=== PATIENT | female | born 1980 | race Caucasian/White ===

== ENCOUNTER 2016-12-27 22:01 | Emergency (ER) | payer SELFPAY ==
[~2016-12-27] VITALS: Ht 162.6 cm; Wt 45.4 kg
[2016-12-27] MEDS ORDERED: NS IV 500 ML 500 ML IV ONE (22:43)
[2016-12-27] MEDS ORDERED: ONDANSETRON 4 MG/2 ML (SDV) Z0FRAN IVP ONE (22:45)
[2016-12-27] MEDS ORDERED: KETOROLAC 30 MG/ML VIAL IVP ONE (22:45)
[2016-12-27] MEDS ORDERED: ONDANSETRON 4 MG/2 ML (SDV) Z0FRAN IVP PRN (22:45)
--- NOTE | 2016-12-27 22:52 | ED GI ---
General Chief Complaint: Abdominal/GI Problems Stated Complaint: N/V/D/ABD PAIN Nursing Triage Note: c/o abdomen pain starting today Sepsis Screen: No Definite Risk Source of Information: Patient, Family (plan sister) Exam Limitations: No Limitations History of Present Illness Time Seen By Provider: 22:42 Initial Comments Patient presents to ER by EMS with a chief complaint of abdominal pain nausea and vomiting started this afternoon after she ate some catfish from [employer] [facility]. This is approximately 1400 hrs. She says for the past 2-3 days she's been having fever Tmax of 103 Fahrenheit by her own thermometer since Friday when she noticed she had a rash all over her body that were small 1 cm flat diameter erythematous lesions with pustules. She says she saw the walk-in clinic and they gave her a shot of steroids for the itching because they thought it was some kind of a mites and this improved both her rash and itching. However she began having fever shortly after the rash started. She states the rash started after she had slept on the floor overnight. No one else in the family has any rash similar to this nor symptoms similar to this. She has not been traveling recently nor she drank from unsafe water or food sources. She is a history of endometriosis for which she's had part of her small intestine removed as well as her gallbladder and hysterectomy. She's also had her thyroid at least partially removed and is on Synthroid. She was also treated up until 2 weeks ago for H. pylori gastritis with antibiotics and PPIs. She has not followed up with her PCP since that medication has completed. Thinks that she is also having some pressure on her chest right now as well as mild shortness of breath he gets worse when she is nauseated. When she threw up today she says there is no blood and only her food. Allergies and Home Medications Allergies Coded Allergies: latex (Verified Allergy, Unknown, 12/27/16) Review of Systems Constitutional: chills, diaphoresis, fever, malaise EENTM: No Blurred Vision, No Double Vision, No Eye Pain Respiratory: Denies Cough, SOA With Exertion Cardiovascular: Chest Pain (pressure) Gastrointestinal: Denies Abdomen Distended, Denies Abdominal Pain, Denies Blood Streaked Stools, Denies Constipated, Denies Diarrhea, Nausea, Vomiting Genitourinary: Denies Burning, Denies Discharge, Denies Drainage Musculoskeletal: No back pain, No joint pain Skin: see HPI, pruritus, rash Psychiatric/Neurological: Denies Headache, Denies Numbness, Denies Paresthesia , Denies Seizure Hematologic/Lymphatic: Denies Blood Clots, Denies Easy Bleeding, Denies Easy Bruising Past [id number]-[id number] Hx Patient Social History Alcohol Use: Denies Use Recreational Drug Use: No Recent Foreign Travel: No Contact w/Someone Who Travel: No Recent Infectious Disease Expo: No Surgeries History of Surgeries: Yes Surgeries: Gallbladder, Hysterectomy, Thyroidectomy Respiratory History of Respiratory Disorde: No Cardiovascular History of Cardiac Disorders: No Neurological History of Neurological Disord: No Reproductive System Female Reproductive Disorders: Endometriosis Genitourinary History of Genitourinary Disor: No Gastrointestinal History of Gastrointestinal Di: No Musculoskeletal History of Musculoskeletal Dis: No Endocrine History of Endocrine Disorders: No HEENT History of HEENT Disorders: No Cancer History of Cancer: No Psychosocial History of Psychiatric Problem: No Integumentary History of Skin or Integumenta: No Blood Transfusions History of Blood Disorders: No Physical Exam Vital Signs VS - Last 72 Hours, by Label 12/27/16 12/27/16 22:04 23:11 Temp 98.7 Pulse 99 Resp 18 B/P (MAP) 111/74 Pulse Ox 98 98 O2 Delivery Room Air Capillary Refill : Less Than 3 Seconds General Appearance: WD/WN, moderate distress, thin HEENT: PERRL/EOMI, normal ENT inspection, pharynx normal Neck: non-tender, supple, normal inspection Respiratory: chest non-tender, lungs clear, normal breath sounds, no respiratory distress, no accessory muscle use, decreased breath sounds Cardiovascular: normal peripheral pulses, regular rate, rhythm, no edema Peripheral Pulses: 2+ Dorsalis Pedis (R), 2+ Left Dors-Pedis (L), 2+ Radial Pulses (R), 2+ Radial Pulses (L) Gastrointestinal: normal bowel sounds, non tender, soft, no organomegaly Extremities: normal range of motion, non-tender, normal inspection, no pedal edema, no calf tenderness, normal capillary refill Back: normal inspection, no CVA tenderness, no vertebral tenderness Neurologic/Psychiatric: alert, normal mood/affect, oriented x 3 Skin: warm/dry, rash (multiple truncal and leg and arm discoid erythematous 1 cm macular rashes with some of them having a punctate had a few of them have a pustular head in the center. She says they're mildly pruritic.) Lymphatic: no adenopathy Focused Exam Evaluation Lactate Level Laboratory Tests 12/27/16 22:55: Lactic Acid Level 1.16 Lactic Acid Level Laboratory Tests Test 12/27/16 22:55 Lactic Acid Level 1.16 MMOL/L (0.50-2.00) Progress/Results/Core Measures Results/Orders Lab Results Laboratory Tests Test 12/27/16 21:15 12/27/16 22:55 12/28/16 00:25 Range/Units Prothrombin Time 13.3 12.2-14.7 SEC INR Comment 1.0 0.8-1.4 Activated Partial Thromboplast Time 24 24-35 SEC White Blood Count 14.3 H 4.3-11.0 10^3/uL Red Blood Count 4.34 L 4.35-5.85 10^6/uL Hemoglobin 13.6 11.5-16.0 G/DL Hematocrit 39 35-52 % Mean Corpuscular Volume 91 80-99 FL Mean Corpuscular Hemoglobin 31 25-34 PG Mean Corpuscular Hemoglobin Concent 35 32-36 G/DL Red Cell Distribution Width 12.4 10.0-14.5 % Platelet Count 212 130-400 10^3/uL Mean Platelet Volume 9.8 7.4-10.4 FL Neutrophils (%) (Auto) 87 H 42-75 % Lymphocytes (%) (Auto) 6 L 12-44 % Monocytes (%) (Auto) 6 0-12 % Eosinophils (%) (Auto) 0 0-10 % Basophils (%) (Auto) 0 0-10 % Neutrophils # (Auto) 12.5 H 1.8-7.8 X 10^3 Lymphocytes # (Auto) 0.9 L 1.0-4.0 X 10^3 Monocytes # (Auto) 0.9 0.0-1.0 X 10^3 Eosinophils # (Auto) 0.0 0.0-0.3 10^3/uL Basophils # (Auto) 0.0 0.0-0.1 10^3/uL Neutrophils % (Manual) 84 % Lymphocytes % (Manual) 8 % Monocytes % (Manual) 3 % Eosinophils % (Manual) 0 % Basophils % (Manual) 0 % Band Neutrophils 0 % Reactive Lymphocytes 5 % Blood Morphology Comment NORMAL Sodium Level 138 135-145 MMOL/L Potassium Level 3.7 3.6-5.0 MMOL/L Chloride Level 108 H 98-107 MMOL/L Carbon Dioxide Level 21 21-32 MMOL/L Anion Gap 9 5-14 MMOL/L Blood Urea Nitrogen 11 7-18 MG/DL Creatinine 0.78 0.60-1.30 MG/DL Estimat Glomerular Filtration Rate > 60 BUN/Creatinine Ratio 14 Glucose Level 111 H 70-105 MG/DL Lactic Acid Level 1.16 0.50-2.00 MMOL/L Calcium Level 8.5 8.5-10.1 MG/DL Magnesium Level 2.1 1.8-2.4 MG/DL Total Bilirubin 0.4 0.1-1.0 MG/DL Aspartate Amino Transf (AST/SGOT) 15 5-34 U/L Alanine Aminotransferase (ALT/SGPT) 16 0-55 U/L Alkaline Phosphatase 65 40-136 U/L Total Protein 6.5 6.4-8.2 GM/DL Albumin 4.2 3.2-4.5 GM/DL Triglycerides Level 64 <150 MG/DL Lipase 22 8-78 U/L Urine Color YELLOW Urine Clarity CLEAR Urine pH 7 5-9 Urine Specific [place] 1.010 L 1.016-1.022 Urine Protein NEGATIVE NEGATIVE Urine Glucose (UA) NEGATIVE NEGATIVE Urine Ketones NEGATIVE NEGATIVE Urine Nitrite NEGATIVE NEGATIVE Urine Bilirubin NEGATIVE NEGATIVE Urine Urobilinogen NORMAL NORMAL MG/DL Urine Leukocyte Esterase NEGATIVE NEGATIVE Urine RBC (Auto) NEGATIVE NEGATIVE Urine RBC NONE /HPF Urine WBC NONE /HPF Urine Squamous Epithelial Cells 2-5 /HPF Urine Crystals NONE /LPF Urine Bacteria TRACE /HPF Urine Casts NONE /LPF Urine Mucus MODERATE H /LPF Urine Culture Indicated NO Urine Test NEGATIVE NEGATIVE Urine Opiates Screen NEGATIVE NEGATIVE Urine Oxycodone Screen NEGATIVE NEGATIVE Urine Methadone Screen NEGATIVE NEGATIVE Urine Propoxyphene Screen NEGATIVE NEGATIVE Urine Barbiturates Screen NEGATIVE NEGATIVE Ur Tricyclic Antidepressants Screen NEGATIVE NEGATIVE Urine Phencyclidine Screen NEGATIVE NEGATIVE Urine Amphetamines Screen NEGATIVE NEGATIVE Urine Methamphetamines Screen NEGATIVE NEGATIVE Urine Benzodiazepines Screen NEGATIVE NEGATIVE Urine Cocaine Screen NEGATIVE NEGATIVE Urine Cannabinoids Screen POSITIVE H NEGATIVE My Orders Orders - MEGAN ONOFRE Drug Screen Stat (Urine) (12/27/16 22:43) Hcg,Qualitative Urine (12/27/16 22:43) Magnesium (12/27/16 22:43) Ua Culture If Indicated (12/27/16 22:43) Cbc With Automated Diff (12/27/16 22:43) Comprehensive Metabolic Panel (12/27/16 22:43) Lactic Acid Analyzer (12/27/16 22:43) Blood Culture (12/27/16 22:43) Sputum Culture (12/27/16 22:43) Protime With Inr (12/27/16 22:43) Partial Thromboplastin Time (12/27/16 22:43) Chest 1 View, Ap/Pa Only (12/27/16 22:43) O2 (12/27/16 22:43) Ondansetron Injection (Zofran Injectio (12/27/16 22:45) Saline Lock/Iv-Start (12/27/16 22:43) Saline Lock/Iv-Start (12/27/16 22:43) Vital Signs Adult Sepsis Patie Q1HR (12/27/16 22:43) Remove Rings In Anticipation O (12/27/16 22:43) Saline Lock/Iv-Start (12/27/16 22:43) Ns Iv 500 Ml (Sodium Chloride 0.9%) (12/27/16 22:43) Ondansetron Injection (Zofran Injectio (12/27/16 22:45) Ketorolac Injection (Toradol Injection) (12/27/16 22:45) Manual Differential (12/27/16 22:55) Triglycerides (12/28/16 01:10) Lipase (12/28/16 01:10) Ct Abd/Pelv W (Appendicitis) (12/28/16 01:10) Ns Iv 1000 Ml (Sodium Chloride 0.9%) (12/28/16 01:10) Ondansetron Injection (Zofran Injectio (12/28/16 01:15) Iohexol Injection (Omnipaque 350 Mg/Ml 1 (12/28/16 01:45) Ns (Ivpb) (Sodium Chloride 0.9% Ivpb Bag (12/28/16 01:45) Medications Given in ED Current Medications Medications Dose Ordered Sig/Elvia Route Start Time Stop Time Status Last Admin Dose Admin Iohexol 100 ml ONCE ONCE IV 12/28/16 01:45 12/28/16 01:46 DC 12/28/16 01:37 100 ML Ketorolac Tromethamine 15 mg ONCE ONCE IVP 12/27/16 22:45 12/27/16 22:47 DC 12/27/16 23:08 15 MG Ondansetron HCl 4 mg ONCE ONCE IVP 12/27/16 22:45 12/27/16 22:47 DC 12/27/16 23:08 4 MG Ondansetron HCl 4 mg ONCE PRN IVP 12/27/16 22:45 12/28/16 01:20 DC 12/28/16 01:20 4 MG Sodium Chloride 100 ml ONCE ONCE IV 12/28/16 01:45 12/28/16 01:46 DC 12/28/16 01:37 80 ML Sodium Chloride 500 ml @ 0 mls/hr Q0M ONCE IV 12/27/16 22:43 12/27/16 22:47 DC 12/27/16 23:08 0 MLS/HR Sodium Chloride 1,000 ml @ 0 mls/hr Q0M ONCE IV 12/28/16 01:10 12/28/16 01:11 DC 12/28/16 02:04 0 MLS/HR Vital Signs/I&O Vital Sign - Last 12Hours 12/27/16 12/27/16 22:04 23:11 Temp 98.7 Pulse 99 Resp 18 B/P (MAP) 111/74 Pulse Ox 98 98 O2 Delivery Room Air Blood Pressure Mean: 86 Progress Note #1: Time: 22:55 Progress Note Rashes also reminiscent of chickenpox however it's not quite as diffusely involved all over her trunk is more sporadic however she says it is much better now than it was back in Friday when it first erupted. She is not febrile now but she is definitely tachycardic sweating and she states she's been taking some Tylenol Motrin [id number] so possible he just got a controlled fever so will go ahead and do a sepsis panel and get a chest x-ray. Going give her little more fluid she's got 500 en route from EMS so we'll give her another 500 now for a total of 1 L. Progress Note #2: Time: 01:11 Progress Note Blood and urine not terribly remarkable other than a mild white count which could be just from her nausea and vomiting however she is having some epigastric pain and continued nausea despite getting a [place] dose of Zofran. We' ll treat her nausea and then I will going get a CT abdomen with contrast of her back fluids to go along with that in addition to the liter she has already received and add a lipase and triglycerides. A normal set of ALT AST makes pancreatitis unlikely but her pain is pretty significant and she has had a history of recent fever. She does not drink alcohol nor does she have diabetes. Diagnostic Imaging Diagonstic Imaging: Xray Plain Films/CT/US/NM/MRI: chest Reviewed: Reviewed by Me Diagonstic Imaging: CT Plain Films/CT/US/NM/MRI: abdomen, pelvis (with contrast) Comments There is segmental wall thickening of the small loops of bowel with intermittent air-fluid levels and mesenteric vascular engorgement which can be seen in the setting infectious or inflammatory enteritis. No greyson obstruction. No free air or fluid collections. Normal appendix. Cholecystectomy. Reviewed: Reviewed [place] Study, Reviewed by Me Departure Impression Impression: Primary Impression: Enteritis Disposition: HOME, SELF-CARE Condition: Stable Departure-Patient Inst. Decision time for Depature: 02:45 Referrals: UNKNOWN (PCP/Family) Primary Care Physician Patient Instructions: Viral Gastroenteritis, Adult (DC) Add. Discharge Instructions: Use the nausea medicine under the tongue every 4-6 hours as needed to control your nausea symptoms. Get plenty of fluids down and get some rest. If you're not improving by 3-5 days or you have worsening symptoms you should go apple picker the antibiotics and start taking them twice a day. You should then return to your primary care physician at that time for further management. If you're mouth is dry or you are confused or have other worrisome symptoms you should return to the ER. All discharge instructions reviewed with patient and/or family. Voiced understanding. Scripts Metronidazole (Metronidazole) 500 Mg Tablet 500 MG PO BID for 7 Days, #14 TAB 0 Refills Prov: MEGAN ONOFRE 12/28/16 Ondansetron (Zofran Odt) 4 Mg Tab.rapdis 4 MG PO Q4H Y for NAUSEA/VOMITING-1ST LINE, #20 TAB 0 Refills Prov: MEGAN ONOFRE 12/28/16 Copy Copies To 1: RONALD SEQUEIRA TITUS J Dec 27, 2016 22:52
[2016-12-27 23:10] LABS: BASOPHILS % (AUTO) 0 % (0-10); EOSINOPHILS % (AUTO) 0 % (0-10); LYMPHOCYTES # (AUTO) 0.9 X 10^3 (1.0-4.0); LYMPHOCYTES % (AUTO) 6 % (12-44); MEAN CORPUSCULAR HEMOGLOBIN 31 PG (25-34); MEAN CORPUSCULAR HGB CONC 35 G/DL (32-36); MEAN CORPUSCULAR VOLUME 91 FL (80-99); MEAN PLATELET VOLUME 9.8 FL (7.4-10.4); MONOCYTES # (AUTO) 0.9 X 10^3 (0.0-1.0); MONOCYTES % (AUTO) 6 % (0-12); NEUTROPHILS # (AUTO) 12.5 X 10^3 (1.8-7.8); NEUTROPHILS % (AUTO) 87 % (42-75); PLATELET COUNT 212 10^3/uL (130-400); RED BLOOD COUNT 4.34 10^6/uL (4.35-5.85); RED CELL DISTRIBUTION WIDTH 12.4 % (10.0-14.5); WHITE BLOOD COUNT 14.3 10^3/uL (4.3-11.0)
[2016-12-27 23:15] LABS: PROTHROMBIN TIME PATIENT 13.3 SEC (12.2-14.7)
[2016-12-27 23:25] LABS: BAND NEUTROPHILS 0 %; BASOPHILS % (MANUAL) 0 %; EOSINOPHILS % (MANUAL) 0 %; LYMPHOCYTES % (MANUAL) 8 %; NEUTROPHILS % (MANUAL) 84 %; REACTIVE LYMPHOCYTES 5 %
[2016-12-27 23:30] LABS: ALANINE AMINOTRANSFERASE 16 U/L (0-55); ALBUMIN 4.2 GM/DL (3.2-4.5); ANION GAP 9 MMOL/L (5-14); ASPARTATE AMINO TRANSFERASE 15 U/L (5-34); BILIRUBIN,TOTAL 0.4 MG/DL (0.1-1.0); BLOOD UREA NITROGEN 11 MG/DL (7-18); BUN/CREATININE RATIO 14; CALCIUM 8.5 MG/DL (8.5-10.1); CARBON DIOXIDE 21 MMOL/L (21-32); CHLORIDE 108 MMOL/L (98-107); CREATININE SERUM 0.78 MG/DL (0.60-1.30); GFR ESTIMATED > 60; GLUCOSE 111 MG/DL (70-105); MAGNESIUM 2.1 MG/DL (1.8-2.4); POTASSIUM 3.7 MMOL/L (3.6-5.0); SODIUM 138 MMOL/L (135-145); TOTAL PROTEIN 6.5 GM/DL (6.4-8.2)
[2016-12-28 00:40] LABS: BILIRUBIN,URINE NEGATIVE (NEGATIVE); KETONES,URINE NEGATIVE (NEGATIVE); LEUKOCYTE ESTERASE ,URINE NEGATIVE (NEGATIVE); NITRITE,URINE NEGATIVE (NEGATIVE); PH,URINE 7 (5-9); PROTEIN,URINE NEGATIVE (NEGATIVE); UROBILINOGEN,URINE NORMAL (NORMAL)
[2016-12-28] MEDS ORDERED: NS IV 1000 ML 1,000 ML IV ONE (01:10)
[2016-12-28] MEDS ORDERED: ONDANSETRON 4 MG/2 ML (SDV) Z0FRAN IVP ONE (01:15)
[2016-12-28 01:33] LABS: LIPASE 22 U/L (8-78); TRIGLYCERIDES 64 MG/DL (<150)
[2016-12-28] MEDS ORDERED: IOHEXOL 350 MG/ML 100 ML (OMNIPAQUE 350) VIAL IV ONE (01:45)
[2016-12-28] MEDS ORDERED: NS 100 ML (IVPB) BAG IV ONE (01:45)
[2016-12-28] MEDS ORDERED: ONDA4TAB8 PO (02:48)
[2016-12-28] MEDS ORDERED: METR500T21 PO (02:48)
[2016-12-28 03:01] VITALS: BP 108/68
--- NOTE | 2016-12-28 07:18 | Diagnostic Imaging Report ---
Clinical indication: Patient complains of abdominal pain and thrown up with fatigue. Exam: Portable chest x-ray upright view. Comparisons: None. Findings: Lungs/pleura: Lungs are clear. There is no pneumothorax. There is no pleural effusion. Mediastinum: Unremarkable. Pulmonary vasculature: Unremarkable. Heart: Unremarkable. Bones/extrathoracic soft tissue: Surgical clips are seen overlying the right upper quadrant which could be related to cholecystectomy changes. Bones show no significant abnormality. Impression: There is no radiographic evidence of acute cardiopulmonary process. Dictated by: Dictated on workstation # [id number]
--- NOTE | 2016-12-28 07:51 | Diagnostic Imaging Report ---
Clinical indication: Patient with mid abdominal pain with nausea/vomiting x1 day. Patient has history of cholecystectomy and hysterectomy. Exam: CT scan of the abdomen and pelvis performed with 100 cc Omnipaque 350 IV contrast. Coronal and sagittal reformatted images were created. Comparison: None. Findings: There is minimal atelectasis involving the posterior aspects of both lung bases. Bones show no acute or significant abnormality. There are small degenerative spurs involving the lower thoracic spine. The gallbladder is surgically absent. The liver, spleen, pancreas, adrenal glands, and both kidneys are unremarkable. There is no hydronephrosis or urinary tract stones. There is no intra-abdominal lymphadenopathy. Uterus is surgically resected. The bladder is partially fluid-filled with no gross abnormality visualized. There is mild bladder wall thickening which may be related to incomplete distention. There is a moderate amount of stool seen within the transverse colon and right colon regions. There is a surgical clip in the right anterior lower quadrant region. The appendix is unremarkable as visualized. There is mild bowel wall thickening with nondilated loops of small bowel with multiple air-fluid levels seen which is nonspecific. There is note of mild mesenteric vascular engorgement seen. The remainder of the visualized stomach, small bowel, and colon are unremarkable. The extra-abdominal and extrapelvic soft tissue structures are unremarkable. IMPRESSION: 1: Nonspecific mild bowel wall thickening and air-fluid levels involving multiple loops of nondilated small bowel. There is also mild mesenteric vascular engorgement. These findings are nonspecific but may be related to infectious or inflammatory enteritis. There is no intestinal obstruction. 2: Postop changes to the abdomen and pelvis. 3: The remainder of this exam is unremarkable. The appendix is unremarkable. I agree with [facility] report. Dictated by: Dictated on workstation # [id number]
== END 2016-12-28 03:00 | disposition home or self-care (01) ==
LOC: ER 22:03
DX: K52.9 Noninfective gastroenteritis and colitis, unspecified (principal); Z90.710 Acquired absence of both cervix and uterus; Z90.49 Acquired absence of other specified parts of digestive tract; Z90.89 Acquired absence of other organs
CPT/HCPCS: 36415; 71010; 74177; 80053; 80306; 81000; 83605; 83690; 83735; 84478; 84703; 85007; 85027; 85610; 85730; 87040; 96361; 96374; 96375; 96376